=== PATIENT | female | born 1970 | race Caucasian/White ===

== ENCOUNTER 2017-06-15 16:56 | Emergency (ER) | payer SELFPAY ==
[~2017-06-15] VITALS: Ht 162.6 cm; Wt 66.7 kg
[2017-06-15] MEDS ORDERED: HYDROCODONE/APAP 5-325MG TABLET PO ONE (17:30)
[2017-06-15] MEDS ORDERED: HYDROCODONE/APAP 5-325MG TABLET ONE (17:33)
--- NOTE | 2017-06-15 17:40 | NUR ---
PATIENT WAS SEEN BY MD FOR C/O ABDOMINAL PAIN. MEDICATION GIVEN ORDERED.
[2017-06-15 17:41] LABS: BASOPHILS # (AUTO) 0.1 K/uL (0.0-8.0); BASOPHILS % (AUTO) 0.8 % (0.0-2.0); EOSINOPHILS # (AUTO) 0.3 K/uL (0.0-0.7); EOSINOPHILS % (AUTO) 3.6 % (0.0-7.0); HEMATOCRIT 26.6 % (31.2-41.9); HEMOGLOBIN 8.4 g/dL (10.9-14.3); LYMPHOCYTES # (AUTO) 1.1 K/uL (20.0-40.0); LYMPHOCYTES % (AUTO) 14.1 % (20.5-51.5); MEAN CORPUSCULAR HEMOGLOBIN 22.6 uug (24.7-32.8); MEAN CORPUSCULAR HGB CONC 32 g/dL (32.3-35.6); MEAN CORPUSCULAR VOLUME 71.6 fL (75.5-95.3); MONOCYTES # (AUTO) 0.4 K/uL (2.0-10.0); MONOCYTES % (AUTO) 4.9 % (0.0-11.0); NEUTROPHILS # (AUTO) 6.2 K/uL (1.8-8.9); NEUTROPHILS % (AUTO) 76.6 % (38.5-71.5); PLATELET COUNT (AUTO) 390 K/uL (179-408); RED BLOOD CELL COUNT(AUTO) 3.71 MIL/uL (3.63-4.92); WHITE BLOOD COUNT (AUTO) 8.1 K/uL (3.8-11.8)
[2017-06-15 17:50] LABS: CREATININE 0.6 mg/dL (0.6-1.3); POTASSIUM 3.8 mmol/L (3.5-5.1)
[2017-06-15 17:55] LABS: BILIRUBIN,DIRECT 0.1 mg/dL (0.0-0.2); BILIRUBIN,TOTAL 0.6 mg/dL (0.2-1.0); TOTAL PROTEIN, SERUM 7.7 g/dL (6.4-8.2)
--- NOTE | 2017-06-15 18:19 | NUR ---
PATIENT STATES PAIN HAS NOT DIMINISHED. DR SEARS AWARE.
[2017-06-15] MEDS ORDERED: ONDANSETRON 4 MG/2 ML VIAL ONE ×2 (18:28→20:08)
[2017-06-15] MEDS ORDERED: MORPHINE SULFATE 4 MG/1 ML DISP.SYRIN ONE ×3 (18:28→21:03)
[2017-06-15] MEDS ORDERED: ONDANSETRON 4 MG/2 ML VIAL IM ONE (18:30)
[2017-06-15] MEDS ORDERED: MORPHINE SULFATE 4 MG/1 ML DISP.SYRIN IM ONE (18:30)
[2017-06-15 18:44] LABS: *BILIRUBIN,URIN NEGATIVE (NEGATIVE); *BLOOD, URINE 3+ (NEGATIVE); *COLOR,URINE PINK (YELLOW); *KETONES,URINE TRACE (NEGATIVE); *PROTEIN,URINE NEGATIVE (NEGATIVE); *UROBILINOGEN,URINE 0.2 E.U./dl (NORMAL); LEUKOCYTE ESTERASE ,URINE NEGATIVE (NEGATIVE); NITRITE, URINE NEGATIVE (NEGATIVE); PH,URINE 7.5 (5.0-8.0); UGLUCOSE NEGATIVE (NEGATIVE)
[2017-06-15 18:46] LABS: *URINE HCG, QUAL POSITIVE (NEGATIVE)
[2017-06-15 18:49] LABS: *CLARITY,URINE SLIGHTLY HAZY (CLEAR)
[2017-06-15 18:50] LABS: BACTERIA,URINE FEW /HPF (NONE SEEN); RBC,URINE 20-50 /HPF (0-3); SQUAMOUS EPITHELIAL CELL,UR MODERATE /HPF (NONE SEEN); WBC,URINE 0-3 /HPF (0-3)
--- NOTE | 2017-06-15 19:05 | NUR ---
hANDOFF REPORT GIVEN TO TRISTON CABELLO
[2017-06-15] MEDS ORDERED: ONDANSETRON IV *ER 4 MG/2 ML VIAL IV ONE (19:45)
[2017-06-15] MEDS ORDERED: MORPHINE SULFATE 2 MG/1 ML DISP.SYRIN IV ONE ×3 (19:45→22:15)
[2017-06-15] MEDS ORDERED: IV NORMAL SALINE 1000 ML BAG IV ONE (19:45)
--- NOTE | 2017-06-15 20:00 | NUR ---
Ultrasound at bedside.
--- NOTE | 2017-06-15 20:43 | NUR ---
Patient states pain on abdomen a little better now 09/28 from 11/28. Denies nausea and vomiting.
--- NOTE | 2017-06-15 22:11 | NUR ---
Patient discharged to home in stable conditon. Written and verbal after care instructions given. Patient verbalizes understanding of instructions. Patient ambulated out of ER with steady gait, VSS, all belongings taken, IV site discontinued, no acute signs of distress.
[2017-06-15 22:50] VITALS: BP 120/76
== END 2017-06-15 22:11 | disposition home or self-care (01) ==
LOC: ER 16:59
DX: R10.84 Generalized abdominal pain (principal)
CPT/HCPCS: 36415; 76856; 80048; 80076; 81001; 83690; 84702; 84703; 85025; 86850; 86900; 86901; 96361; 96372 ×2; 96374; 96375; 96376; 99285; A4663; J2270 ×3; J2405 ×2; J7030